=== PATIENT | female | born 1975 | race Two or more races ===

== ENCOUNTER 2020-10-28 01:41 | Emergency (ER) | payer SELFPAY ==
[~2020-10-28] VITALS: Ht 170.2 cm; Wt 105.7 kg
--- NOTE | 2020-10-28 01:50 | NUR ---
PT BIBRA FROM HOME C/O ETOH AND N/V. PT SPEAKING IN FULL SENTENCES. PT ALSO STATES "I TOOK DEPRESSION PILLS". PT DENIES SI/HI. PT AAOX4, RESPIRATIONS EVEN ADN UNLABORED ON RA W/ NAD NOTED. PT CONNECTED TO THE UTILITY PERSON AND POX.
[2020-10-28] MEDS ORDERED: ONDANSETRON HCL/PF 4 MG/2 ML VIAL ONE (02:19)
[2020-10-28] MEDS ORDERED: IV NS 0.9% 1,000 ML BAG IV ONE (02:30)
[2020-10-28] MEDS ORDERED: ONDANSETRON HCL/PF - ER 4 MG/2 ML VIAL IV ONE (02:30)
[2020-10-28 02:41] LABS: BASOPHILS # (AUTO) 0.1 K/uL (0.0-0.2); EOSINOPHILS % (AUTO) 1.4 % (0.0-6.0); HEMATOCRIT 44 % (33-45); HEMOGLOBIN 15.2 g/dL (11.5-14.8); LYMPHOCYTES % (AUTO) 27.4 % (20.0-44.0); MEAN CORPUSCULAR HGB CONC 34 g/dl (31.0-36.0); MEAN CORPUSCULAR VOLUME 88 fL (82-100); MONOCYTES # (AUTO) 0.3 K/uL (0.1-1.30); MONOCYTES % (AUTO) 3.5 % (2.0-12.0); NEUTROPHILS # (AUTO) 4.9 K/uL (1.8-8.9); NEUTROPHILS % (AUTO) 66.7 % (43.0-81.0); PLATELET COUNT (AUTO) 193 K/uL (150-450); RED BLOOD CELL COUNT(AUTO) 5.04 MIL/uL (4.0-5.2); WHITE BLOOD COUNT (AUTO) 7.4 K/uL (4.3-11.0)
[2020-10-28 02:49] LABS: CALCIUM, SERUM 9.5 mg/dL (8.5-10.1); CARBON DIOXIDE 23 mmol/L (21-32); CHLORIDE 103 mmol/L (98-107); CREATININE 0.7 mg/dL (0.6-1.3); GLUCOSE 300 mg/dL (74-106); POTASSIUM 3.7 mmol/L (3.5-5.1); SODIUM SERUM 140 mmol/L (136-145); UREA NITROGEN, BLOOD 8 mg/dL (7-18)
[2020-10-28 02:55] LABS: ALANINE AMINOTRANSFERASE 140 U/L (12-78); ALBUMIN 4.2 g/dL (3.4-5.0); ALCOHOL, BLOOD 150 mg/dL (0-0); ALKALINE PHOSPHATASE 111 U/L (46-116); ASPARTATE AMINOTRANSFERASE 70 U/L (15-37); BILIRUBIN,DIRECT 0.1 mg/dL (0.0-0.2); BILIRUBIN,TOTAL 0.4 mg/dL (0.2-1.0); TOTAL PROTEIN, SERUM 8.5 g/dL (6.4-8.2)
[2020-10-28 03:03] LABS: THYROID STIMULATING HORMONE 1.489 uIU/mL (0.358-3.74)
[2020-10-28 03:20] LABS: ACETAMINOPHEN < 2 ug/ml (10-30)
--- NOTE | 2020-10-28 03:33 | NUR ---
URINE COLLECTED AND SENT TO LAB
[2020-10-28 03:38] LABS: BILIRUBIN,URINE Negative (NEGATIVE); COLOR,URINE YELLOW (YELLOW); LEUKOCYTE ESTERASE ,URINE Trace (NEGATIVE); NITRITE, URINE Negative (NEGATIVE); PH,URINE 5.5 (5.0-8.0); PROTEIN,URINE 30 mg/dl (NEGATIVE); UGLUCOSE 500 MG/DL mg/dL (NEGATIVE); UROBILINOGEN,URINE 0.2 EU/dL (0.2)
[2020-10-28 04:28] LABS: BACTERIA,URINE Few /HPF (None Seen); RBC,URINE 0-2 /HPF (0-2)
[2020-10-28 04:29] LABS: SQUAMOUS EPITHELIAL CELL,UR Moderate /HPF (None Seen)
[2020-10-28] MEDS ORDERED: METFORMIN 500 MG TABLET PO ONE (05:00)
[2020-10-28] MEDS ORDERED: METFORMIN 500 MG TABLET ONE (05:24)
[2020-10-28] MEDS ORDERED: METF-440 PO (05:29)
--- NOTE | 2020-10-28 05:35 | NUR ---
PT RESTING COMFORTABLY IN BED W/ EYES CLOSED. PT AROUSABLE TO NAME. RR EVEN AND UNLABORED. WILL CONTINUE TO MONITOR PT
--- NOTE | 2020-10-28 05:42 | NUR ---
IV removed. Catheter intact and site benign. Pressure and 4x4 applied to site. No bleeding noted.
--- NOTE | 2020-10-28 05:42 | NUR ---
Patient discharged to home in stable condition. Written and verbal after care instructions given. Patient verbalizes understanding of instruction.
--- NOTE | 2020-10-28 05:58 | NUR ---
PATIENT IS PICKED UP FAMILY MEMBERS.
[2020-10-28 06:59] VITALS: BP 132/88
== END 2020-10-28 06:00 | disposition home or self-care (01) ==
LOC: ER 01:46
DX: F10.129 Alcohol abuse with intoxication, unspecified (principal); F32.9 Major depressive disorder, single episode, unspecified; I10 Essential (primary) hypertension; Y90.6 Blood alcohol level of 120-199 mg/100 ml; E66.9 Obesity, unspecified; Z68.36 Body mass index [BMI] 36.0-36.9, adult; Z79.899 Other long term (current) drug therapy
CPT/HCPCS: 36415; 80048; 80076; 80143; 80307; 80320; 81001; 84443; 85025; 87077; 87086; 93005; 96361; 96374; 99284; J2405 ×2; G0480